=== PATIENT | male | born 1945 | race Caucasian/White ===

== ENCOUNTER 2022-02-19 15:57 | Outpatient (CLI) | payer MEDICARE, BC ==
[2022-02-20 01:01] LABS: SARS-CoV-2 PCR by NAA Not Detected (NotDetected)
== END 2022-02-19 15:58 | disposition home or self-care (01) ==
LOC: CSHLAB 15:57
PROVIDERS: ATTEND Orthopaedic Surgery
DX: Z01.818 Encounter for other preprocedural examination (principal); Z20.822 Contact with and (suspected) exposure to COVID-19
CPT/HCPCS: 85610; 85730; 87081; 93005; 93010; U0003; U0005

== ENCOUNTER 2022-02-19 16:00 | Observation (INO) | payer MEDICARE, BC ==
[2022-02-20 14:54] VITALS: BMI 27.7
[2022-02-24] MEDS ORDERED: Lidocaine 1% MPF 2 ML VIAL ONE (06:38)
[2022-02-24] MEDS ORDERED: Bupivacaine 0.25% HCL 30 ML VIAL ONE (06:54)
[2022-02-24] MEDS ORDERED: Neomycin-Polymyxin 1 ML AMP ONE (06:55)
[2022-02-24] MEDS ORDERED: EPINEPHrine 1 MG/ML AMP ONE ×2 (07:08→08:11)
[2022-02-24] MEDS ORDERED: Dexamethasone 4 mg/ml Vial ONE (07:08)
[2022-02-24] MEDS ORDERED: Ropivacaine 0.2% HCl/PF 20 ML ONE (07:08)
[2022-02-24] MEDS ORDERED: Ropivacaine 0.5% HCl/PF (150 MG/30 ML VIAL) ONE (07:08)
[2022-02-24] MEDS ORDERED: Fentanyl 100 MCG/2 ML VIAL ONE ×2 (07:09→08:05)
[2022-02-24] MEDS ORDERED: Midazolam HCl 2 mg/2 ml Vial ONE (07:09)
[2022-02-24] MEDS ORDERED: Lidocaine 1% PF 5 ML VIAL ONE ×2 (07:09→07:31)
[2022-02-24] MEDS ORDERED: ceFAZolin 2 GM/Dextrose 50 ML IVPB ONE (07:27)
[2022-02-24] MEDS ORDERED: Tranexamic Acid 1,000 MG/10 ML VIAL ONE (07:29)
[2022-02-24] MEDS ORDERED: PROPOFOL 20 ML ONE (07:31)
[2022-02-24] MEDS ORDERED: Dexamethasone 20 MG/5 ML VIAL ONE (08:03)
[2022-02-24] MEDS ORDERED: Ketorolac Tromethamine 30 MG/ML VIAL ONE (08:11)
[2022-02-24] MEDS ORDERED: Ropivacaine 0.2% HCl/PF 40 ML ONE (08:12)
[2022-02-24] MEDS ORDERED: Morphine 10 MG/ML VIAL ONE (08:12)
[2022-02-24] MEDS ORDERED: Ondansetron PF 4 MG/2 ML Vial ONE (09:04)
[2022-02-24] MEDS ORDERED: Diphenoxylate HCl/Atropine Tablet PO PRN (09:55)
[2022-02-24] MEDS ORDERED: Nitroglycerin 0.4 MG TAB (25 Tab Bottle) SL PRN (09:55)
[2022-02-24] MEDS ORDERED: Morphine 2 MG/ML VIAL SLOW IVP PRN (16:06)
[2022-02-24] MEDS ORDERED: HYDROcodone/Acetaminophen 10/325 mg Tablet PO PRN (16:15)
[2022-02-24] MEDS ORDERED: Acetaminophen 325 MG TAB PO PRN (16:15)
[2022-02-24] MEDS ORDERED: diphenhydrAMINE 25 MG CAP PO PRN (16:15)
[2022-02-24] MEDS ORDERED: Promethazine HCl 25 MG/ML VIAL IM PRN (16:15)
[2022-02-24] MEDS ORDERED: Ondansetron PF 4 MG/2 ML Vial IVP PRN (16:15)
[2022-02-24] MEDS ORDERED: Morphine 4 MG/ML VIAL SLOW IVP PRN (16:15)
[2022-02-24] MEDS: Sodium Chloride 0.9% 1,000 ML IV SCH (17:12)
[2022-02-24] MEDS: HYDROcodone/Acetaminophen 10/325 mg Tablet PO PRN (19:46)
[2022-02-24] MEDS ORDERED: Tamsulosin HCl 0.4 MG CAP PO SCH (21:00)
[2022-02-24] MEDS: Atorvastatin Calcium 40 MG TAB PO SCH ×2 (21:18→23:41)
[2022-02-24] MEDS: Ketorolac Tromethamine 30 MG/ML VIAL IM/IV SCH (21:18)
[2022-02-24] MEDS: ceFAZolin 2 GM/Dextrose 50 ML 2 GM in Premix Bag 1 BAG IVPB SCH (21:20)
[2022-02-24] MEDS ORDERED: Aspirin 81 mg Enteric Coated Tablet PO SCH (23:30)
[2022-02-25] MEDS: ceFAZolin 2 GM/Dextrose 50 ML 2 GM in Premix Bag 1 BAG IVPB SCH (05:32)
[2022-02-25] MEDS: HYDROcodone/Acetaminophen 10/325 mg Tablet PO PRN ×2 (05:33→13:13)
[2022-02-25] MEDS: Ketorolac Tromethamine 30 MG/ML VIAL IM/IV SCH (05:33)
[2022-02-25] MEDS: Sodium Chloride 0.9% 1,000 ML IV SCH ×2 (05:42→13:14)
[2022-02-25] MEDS ORDERED: Levothyroxine Sodium 88 MCG TAB PO SCH (06:00)
[2022-02-25] MEDS ORDERED: Ferrous Gluconate 324 MG TAB PO SCH (08:00)
[2022-02-25] MEDS ORDERED: Aspirin 81 mg Enteric Coated Tablet PO SCH (09:00)
[2022-02-25] MEDS ORDERED: Senokot S 8.6-50 MG TAB PO SCH (09:00)
[2022-02-25] MEDS ORDERED: Fluticasone Propionate Nasal Spray 16 gm Bottle NASAL PRN (09:00)
[2022-02-25] MEDS ORDERED: Cholecalciferol 1,000 UNITS (25 MCG) TAB PO SCH (09:00)
[2022-02-25] MEDS ORDERED: Cyanocobalamin (Vitamin B-12) 1,000 MCG TAB PO SCH (09:00)
[2022-02-25] MEDS ORDERED: Multivitamin W/ Minerals 1 TAB PO SCH (09:00)
[2022-02-25] MEDS ORDERED: Digoxin 0.25 MG TAB PO SCH (09:00)
[2022-02-25] MEDS ORDERED: VITAMIN E 450 MG PO SCH (09:00)
[2022-02-25] MEDS ORDERED: [UNRECOGNIZED DRUG - OTHER] PO SCH (09:00)
[2022-02-25 11:40] VITALS: TEMP 97.6
[2022-02-25 15:47] VITALS: BP 130/66
== END 2022-02-25 15:25 | disposition home or self-care (01) ==
LOC: INTOOBSV 02-24 05:52 → CSHERHOLD 02-24 05:52 → CSHTELE 02-24 15:12 → EDSTATUS 02-24 16:00
PROVIDERS: ADMIT Orthopaedic Surgery; ATTEND Orthopaedic Surgery
PROC: 0SRD0J9 Replacement of Left Knee Joint with Synthetic Substitute, Cemented, Open Approach (ICD-10-PCS; principal; 2022-02-24)
DX: M17.12 Unilateral primary osteoarthritis, left knee (principal)
CPT/HCPCS: 27447; 73560; 85014; 85018; 96374; 96375; 96376; 97116; 97139 ×2; 97530 ×2; C1713 ×2; C1776 ×2; G0378 ×2; 36415; J0171; J0690; J1100; J1885; J2250; J2270; J2405; J2704; J2795; J3010; J3370; J7050; S0020